=== PATIENT | male | born 1940 | race Asian ===

== ENCOUNTER 2023-05-01 13:02 | Emergency (ER) | payer MEDICARE, OTHER ==
[2023-05-01 13:50] LABS: BASOPHILS % (AUTO) 0.6 %; EOSINOPHILS # (AUTO) 0.2 10^3/uL (0.0-0.7); EOSINOPHILS % (AUTO) 3.6 %; HCT - HEMATOCRIT 34.5 % (42.0-52.0); HGB - HEMOGLOBIN 11.1 g/dL (14.0-18.0); LYMPHOCYTES # (AUTO) 0.9 10^3/uL (1.5-3.5); LYMPHOCYTES % (AUTO) 14.7 %; MEAN CORPUSCULAR HGB CONC 32.2 g/dL (32.0-36.0); MEAN CORPUSCULAR VOLUME 99.4 fL (80.0-94.0); MEAN PLATELET VOLUME 10.7 fL (7.4-11.4); MONOCYTES # (AUTO) 0.5 10^3/uL (0.0-1.0); MONOCYTES % (AUTO) 7.4 %; NEUTROPHILS # (AUTO) 4.7 10^3/uL (1.5-6.6); NEUTROPHILS % (AUTO) 73.5 %; PLT - PLATELET COUNT 253 10^3/uL (130-450); RED BLOOD COUNT 3.47 10^6/uL (4.70-6.10); RED CELL DISTRIBUTION WIDTH 13.2 % (12.0-15.0); WHITE BLOOD COUNT 6.4 x10^3/uL (4.8-10.8)
[2023-05-01] MEDS ORDERED: SODIUM CHLORIDE 0.9% 500 ML IV STA (13:54)
[2023-05-01 14:03] LABS: BILIRUBIN,URINE NEGATIVE (NEGATIVE); GLUCOSE, URINE (UA) NEGATIVE (NEGATIVE); KETONES,URINE (UA) NEGATIVE (NEGATIVE); LEUKOCYTE ESTERASE, URINE NEGATIVE (NEGATIVE); NITRITE,URINE NEGATIVE (NEGATIVE); OCCULT BLOOD,URINE SMALL (NEGATIVE); PH,URINE 5.5 PH (5.0-7.5); PROTEIN,URINE NEGATIVE (NEGATIVE); UROBILINOGEN,URINE 0.2 (NORMAL) E.U./dL (NORMAL)
[2023-05-01 14:09] LABS: BACTERIA,URINE Rare /HPF (None Seen); CLARITY,URINE CLEAR (CLEAR); SQUAMOUS EPITHELIAL CELL,UR NONE SEEN (<= Few); WBC,URINE 0-3 /HPF (0-3)
[2023-05-01 14:10] LABS: INR 1.3 (0.8-1.2); PT - PROTHROMBIN TIME 13.8 secs (9.9-12.6)
[2023-05-01 14:20] LABS: ALBUMIN 4.7 g/dL (3.2-5.5); ALBUMIN/GLOBULIN RATIO 1.4 (1.0-2.2); BILIRUBIN,TOTAL 0.7 mg/dL (0.2-1.0); CALCIUM 9.6 mg/dL (8.5-10.3); CREATININE 1.4 mg/dL (0.6-1.3); MAGNESIUM 1.9 mg/dL (1.7-2.3); POTASSIUM 3.7 mmol/L (3.5-4.5)
[2023-05-01] MEDS ORDERED: diazePAM INJ 5 MG/ML SYRINGE ONE (15:19)
--- NOTE | 2023-05-01 15:24 | CT Report ---
PROCEDURE: Head WO INDICATIONS: TIA sx, left side (also prior stroke w/ left resid TECHNIQUE: Noncontrast 4.5 mm thick angled axial sections acquired from the foramen magnum to the vertex. For r adiation dose reduction, the following was used: automated exposure control, adjustment of mA and/or kV according to patient size. COMPARISON: Correlation is made with the accompanying head and neck CT angiogram. FINDINGS: Image quality: Excellent. CSF spaces: Basal cisterns are patent. No extra-axial fluid collections. Ventricles are normal in size and shape. Brain: There is a remote, completed right MCA infarction seen, with volume loss and encephalomalacia . No midline shift. No intracranial masses or hemorrhage. Street-white matter interface is normal. Skull and face: Calvarium and visualized facial bones are intact, without suspicious lesions. Sinuses: Visualized sinuses and mastoids are clear. IMPRESSION: No he, acute intracranial abnormality can be seen. 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 If there is strong clinical concern for a stroke, please consider a dedicated brain MRI for further e valuation (assuming that there is no contraindication to MRI). Reviewed by: Placido Leary MD on 05/01/2023 2:23 PM [facility] Approved by: Placido Leary MD on 05/01/2023 2:23 PM [facility] Station ID: [id number]
--- NOTE | 2023-05-01 15:27 | CT Report ---
PROCEDURE: Angio Head/Neck INDICATIONS: word search, confused for 15 min today TECHNIQUE: After the administration of intravenous contrast, 1 mm thick sections acquired from the aortic arch t hrough the [place] of [place]. 3-dimensional trwkwxd-yqgtlfkcn-yjhtsqrnsq (MIP) and/or volume renderin g reformats were acquired of the central intracranial vasculature and neck separately. For radiation dose reduction, the following was used: automated exposure control, adjustment of mA and/or kV acco rding to patient size. CONTRAST: Omni 300 100ml COMPARISON: None. FINDINGS: Image quality: There is streak artifact seen to the level of the shoulders. Limited by bolus timing, with venous contamination. HEAD CT: CSF Spaces: Basal cisterns are patent. No extra-axial fluid collections. Ventricles are normal in size and shape. Brain: There is a remote right MCA territory infarction. Skull and face: Calvarium and visualized facial bones appear intact, without suspicious lesions. Sinuses: Visualized sinuses and mastoids are clear. HEAD CT ANGIOGRAPHY: Anterior circulation: Intracranial internal carotid arteries demonstrate atherosclerotic irregularit y and calcification, with approximately 50% narrowing on each side. The flow within the paired anteri or cerebral arteries is normal and symmetric. The flow within the middle cerebral arteries is normal and symmetric. The anterior communicating artery is seen. No aneurysms are seen. Posterior circulation: Visualized portions of the vertebral arteries demonstrate normal caliber, and join to form a normal appearing basilar artery. Flow within the posterior cerebral arteries is norm al and symmetric. No aneurysms are seen. NECK CT ANGIOGRAPHY: Carotid system: The great vessels demonstrate a conventional anatomy as they arise from the aortic a rc. The origins of the common carotid arteries appear patent. The common carotid arteries demonstr ate normal caliber and courses. The bifurcation regions demonstrate atherosclerotic irregularity and calcification, with 70% narrowing of the left proximal internal carotid artery. 40% narrowing can be seen involving the right proximal internal carotid artery. The more distal internal carotid arteries demonstrate normal course and caliber. Posterior circulation: The origins of the vertebral arteries both appear widely patent. The more white perior extracranial portions of both vertebral arteries also demonstrate normal courses and calibers. They join to form a normal appearing basilar artery. Soft tissues: Visualized neck soft tissues demonstrate no suspicious abnormalities. Bones: Sternotomy wires are partially seen. No suspicious bony lesions. Visualized cervical spine a ppears normally aligned. Focal degenerative change can be seen involving the C1-C2 interface anterio rly. Focal C5-C6 degenerative change is seen. IMPRESSION: Narrowing can be seen involving the proximal internal carotid arteries, 70% on the left and 40% on th e right. No significant intracranial arterial abnormalities are seen. 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 Additional findings: Cervical spine degenerative change Sternotomy wires The estimate of stenosis included in the report of the imaging study was calculated using the NASCET method Reviewed by: Placido Leary MD on 05/01/2023 2:26 PM [facility] Approved by: Placido Leary MD on 05/01/2023 2:26 PM [facility] Station ID: [id number]
[2023-05-01] MEDS ORDERED: levETIRAcetam 500 MG/5 ML VIAL IVP STA (15:29)
[2023-05-01] MEDS ORDERED: diazePAM INJ 5 MG/ML SYRINGE IVP STA (15:29)
--- NOTE | 2023-05-01 16:24 | ED Physician Documentation ---
PD HPI FOCAL NEURO - Stated complaint Stated Complaint: SHAKING/LT FACE FROZE - Chief complaint Chief Complaint: Neuro - History obtained from History obtained from: Patient - History of Present Illness Timing - onset: How many minutes ago (20), Today Timing - duration: Minutes (1-2) Timing - details: Abrupt onset (pt was eating in fast food with spouse and had onset of left facial twitching and felt "frozen" per pt, with left arm twitching. It then stopped and he felt back to normal. No syncope nor LOC. No headache with it. Has not had prior symptoms.), Now resolved Review of Systems Constitutional: denies: Fever, Chills Nose: denies: Rhinorrhea / runny nose, Congestion Throat: denies: Sore throat GI: denies: Abdominal Pain Neurologic: denies: Focal weakness, Numbness, Headache PD PAST MEDICAL HISTORY - Past Medical History Past Medical History: Yes Cardiovascular: None, Hypertension, Coronary artery disease Respiratory: None Neuro: CVA (few years ago re[facility] and had MRI and studies there, with follow up Neurology at [facility] here, last ween this past ?October regular visit. Prior work up 2021. CUrrently on Plavix. No aspirin. prior symptoms were left weakness that improved to minimal deficit currently. ) Endocrine/Autoimmune: None GI: None : None HEENT: None Psych: None Musculoskeletal: None Derm: None - Past Surgical History Past Surgical History: Yes Cardiovascular: CABG - Present Medications Home Medications: Ambulatory Orders Medication Instructions Recorded Confirmed Clopidogrel [Plavix] 75 mg PO DAILY 05/01/23 05/01/23 Ezetimibe [Zetia] 10 mg ORAL DAILY 05/01/23 05/01/23 Levetiracetam [Keppra] 500 mg PO BID #60 tablet 05/01/23 Lisinopril [Zestril] 30 mg PO DAILY 05/01/23 05/01/23 Simvastatin [Zocor] 10 mg PO DAILY 05/01/23 05/01/23 - Allergies Allergies/Adverse Reactions: Allergies Allergy/AdvReac Type Severity Reaction Status Date / Time No Known Drug Allergies Allergy Verified 05/01/23 13:18 - Social History Does the pt smoke?: No Smoking Status: Former smoker Does the pt drink ETOH?: No Does the pt have substance abuse?: No - Immunizations Immunizations are current?: Yes PD ED PE NORMAL - Vitals Vital signs reviewed: Yes - General General: Alert and oriented X 3, No acute distress, Well developed/nourished - HEENT HEENT: Pharynx benign - Neck Neck: Supple, no meningeal sign, No adenopathy, No bruit - Cardiac Cardiac: RRR, No murmur - Respiratory Respiratory: Clear bilaterally - Abdomen Abdomen: Soft, Non tender - Derm Derm: Normal color, Warm and dry - Neuro Neuro: Alert and oriented X 3, time study observer 2-12 intact, No motor deficit, No sensory deficit, Normal speech NIHSS - Level of Consciousness Level of consciousness: (0) Alert, Keenly responsive LOC Questions: (0) Answers both Q's correct LOC Commands: (0) Performs both correctly - Gaze Best Gaze: (0) Normal - Visual Visual: (0) No loss - Facial Palsy Facial Palsy: (0) Normal, symmetrical movement - Motor Arms (both separate) Motor Arm (right): (0) No drift Motor Arm (left): (0) No drift - Motor Legs (both separate) Motor Leg (right): (0) No drift Motor Leg (left): (0) No drift - Limb Ataxia Limb Ataxia: (0) Absent - Sensory Sensory: (0) Normal - Best Language Best Language: (0) No aphasia - Dysarthria Dysarthria: (0) Normal - Extinction and Inattention (formally neg Extinction and inattention: (0) No abnormality - Total Score/Results Total Score/Result: 0 Results - Vitals Vitals: Vital Signs - 24 hr 05/01/23 05/01/23 05/01/23 13:21 13:58 15:12 Temperature 35.9 C L Heart Rate 84 90 87 Respiratory 16 28 H 18 Rate Blood Pressure 153/64 H 139/64 H 169/87 H O2 Saturation 100 100 95 05/01/23 05/01/23 05/01/23 16:00 16:30 17:00 Temperature Heart Rate 78 77 73 Respiratory 16 13 17 Rate Blood Pressure 140/67 H 108/58 L 131/68 H O2 Saturation 100 100 99 05/01/23 05/01/23 05/01/23 17:26 18:00 19:00 Temperature 36.5 C Heart Rate 75 65 66 Respiratory 17 14 14 Rate Blood Pressure 167/57 H 136/64 H 130/60 O2 Saturation 100 100 100 Oxygen O2 Source Room air - Labs Labs: Laboratory Tests 05/01/23 05/01/23 05/01/23 13:46 13:50 13:56 WBC 6.4 RBC 3.47 L Hgb 11.1 L Hct 34.5 L MCV 99.4 H MCH 32.0 H MCHC 32.2 RDW 13.2 Plt Count 253 MPV 10.7 Neut # (Auto) 4.7 Lymph # (Auto) 0.9 L Coal # (Auto) 0.5 Eos # (Auto) 0.2 Baso # (Auto) 0.0 Absolute Nucleated RBC 0.00 Nucleated RBC % 0.0 PT INR Sodium 137 Potassium 3.7 Chloride 101 Carbon Dioxide 27 Anion Gap 9.0 BUN 24 H Creatinine 1.4 H Estimated GFR (MDRD) 48 L Glucose 120 H Calcium 9.6 Magnesium 1.9 Total Bilirubin 0.7 AST 20 ALT 7 L Alkaline Phosphatase 51 Total Protein 8.0 Albumin 4.7 Globulin 3.3 Albumin/Globulin Ratio 1.4 Lipase 45 Urine Color YELLOW Urine Clarity CLEAR Urine pH 5.5 Ur Specific [place] 1.020 Urine Protein NEGATIVE Urine Glucose (UA) NEGATIVE Urine Ketones NEGATIVE Urine Occult Blood SMALL H Urine Nitrite NEGATIVE Urine Bilirubin NEGATIVE Urine Urobilinogen 0.2 (NORMAL) Ur Leukocyte Esterase NEGATIVE Urine RBC 6-10 H Urine WBC 0-3 Ur Squamous Epith Cells NONE SEEN Urine Bacteria Rare Ur Microscopic Review INDICATED Urine Culture Comments NOT INDICATED 05/01/23 13:56 WBC RBC Hgb Hct MCV MCH MCHC RDW Plt Count MPV Neut # (Auto) Lymph # (Auto) Coal # (Auto) Eos # (Auto) Baso # (Auto) Absolute Nucleated RBC Nucleated RBC % PT 13.8 H INR 1.3 H Sodium Potassium Chloride Carbon Dioxide Anion Gap BUN Creatinine Estimated GFR (MDRD) Glucose Calcium Magnesium Total Bilirubin AST ALT Alkaline Phosphatase Total Protein Albumin Globulin Albumin/Globulin Ratio Lipase Urine Color Urine Clarity Urine pH Ur Specific [place] Urine Protein Urine Glucose (UA) Urine Ketones Urine Occult Blood Urine Nitrite Urine Bilirubin Urine Urobilinogen Ur Leukocyte Esterase Urine RBC Urine WBC Ur Squamous Epith Cells Urine Bacteria Ur Microscopic Review Urine Culture Comments - Rads (name of study) head CT with angio Relevant Findings:: Prelim report reviewed (prior right large CVA. No acute process seen. No ICH. angio showing no significant stenosis with 70% left ICA, 40% right. ) PD Medical Decision Making - ED course Complexity details: reviewed results (no ICH. Prior large right parietal CVA noted. No apparent new areas. ), re-evaluated patient, considered differential, d/w leadership development consultant ( Neurology consulted, Dr. Cedeño, recommends Keppra 500 mg bid and f/u Bryce Machuca, Neurologist he sees. Recommends OBS overnight with MRI and telemetry. Pt and preferring discharge home and follow up. ) ED course: while in the ED, just after returning from CT, the patient was seen to have o nset of twitching left side of face and tonic/clonic movement os fleft arm/hand. No movement noted of left leg, but did not move it on his own. Right arm and foot moved volitionally, he could respiratory assistant my hand and push his foot down on right to command, while still havin the left sided involuntary movement. Appeared c/w focal motor seizure. It ended and hew as then able to follow commands with both sides. NO headache. The patient and wanted to go home and follow up with PCP and Neurology. Will add Keppra and he was given IV dose here. He is without any further symptoms subsequent to the IV fluids/Diazepam/Keppra. Watched couple of hours while awaiting [facility] call back and consult. The pt was to be on ASA and continue Plavix, add Keppra. I did not see necessarily bad reason for not staying to get MRI in AM/tomorrow, presuming we would be able to fit in the study in regular schedule. Therefore did not see need for AMA, but just they chose other option for [facility] MRI in followup. Departure - Departure Disposition: 01 Home, Self Care Clinical Impression: Focal motor seizure, Status post CVA Condition: Stable Record reviewed to determine appropriate education?: Yes Instructions: ED Seizure New Onset Unk Cause Follow-Up: Germania Machuca MD [Physician No Access] - Prescriptions: Levetiracetam [Keppra] 500 mg PO BID #60 tablet Comments: I spoke with the on-call neurologist at [facility]. They do recommend following up with Dr. Machuca your neurologist. Call for an appointment. At this point they would recommend a seizure medicine called Keppra twice daily 500 mg. Continue with your current Plavix/clopidogrel and add a baby aspirin daily until follow-up. Return if recurring or frequent symptoms again. Otherwise follow-up with your primary care in the short-term and also the neurology at their soonest appointment. The neurologist did recommend the repeat follow-up MRI of the brain and this could be done outpatient with your preference for going home at this point. Continue your other usual medicines. Stay well-hydrated. I sent your prescription to [email or web address] in [place]. Forms: PCP List Discharge Date/Time: 05/01/23 19:10
[2023-05-01] MEDS ORDERED: iohexoL-300 100 ML VIAL IVP ONE (17:09)
[2023-05-01 17:33] VITALS: O2SAT 100
[2023-05-01] MEDS ORDERED: ASPIRIN CHEW 81 MG TABLET PO STA (18:50)
[2023-05-01 19:10] VITALS: BP 130/60
== END 2023-05-01 19:10 | disposition home or self-care (01) ==
LOC: ED 13:02
DX: Z87.891 Personal history of nicotine dependence (principal); G40.89 Other seizures; I69.354 Hemiplegia and hemiparesis following cerebral infarction affecting left non-dominant side; I10 Essential (primary) hypertension; Z79.02 Long term (current) use of antithrombotics/antiplatelets
CPT/HCPCS: 36415; 70450; 70496; 70498; 80053; 81001; 83690; 83735; 85025; 85610; 96374; 96375; 99284; A9270; Q9967; 81003; 87086